=== PATIENT | male | born 1970 | race Caucasian/White ===

== ENCOUNTER → 2017-01-22 | Outpatient (CLI) | payer MEDICAID | LOC: CIMAGING 14:25 | PROVIDERS: ATTEND Internal Medicine | DX: M19.071 Primary osteoarthritis, right ankle and foot (principal); M19.072 Primary osteoarthritis, left ankle and foot; M25.841 Other specified joint disorders, right hand; M25.842 Other specified joint disorders, left hand; Z87.81 Personal history of (healed) traumatic fracture | CPT/HCPCS: 73130-PO; 73630-PO ==